=== PATIENT | female | born 1985 | race Caucasian/White ===

== ENCOUNTER 2020-01-28 00:57 | Emergency (ER) | payer BC ==
--- NOTE | 2020-01-28 01:04 | ED Physician Documentation ---
History of Present Illness - Stated complaint Stated Complaint: AB PX - History obtained from History obtained from: Patient - Additonal information Additional information: Patient is a 34-year-old female presents with a 1 to 2-day history of diffuse complaints such as suprapubic discomfort left lower quadrant left flank discomfort denies hematuria or any history of kidney stones denies fevers does report some mild pelvic discomfort without vaginal bleeding or discharge. She is a G6, P4 with 4 spontaneous vaginal deliveries. Denies fevers or vomiting. Review of Systems Constitutional: reports: Reviewed and negative Eyes: reports: Reviewed and negative Ears: reports: Reviewed and negative Nose: reports: Reviewed and negative Throat: reports: Reviewed and negative Cardiac: reports: Reviewed and negative Respiratory: reports: Reviewed and negative GI: reports: Abdominal Pain : reports: Dysuria Skin: reports: Reviewed and negative Musculoskeletal: reports: Reviewed and negative Neurologic: reports: Reviewed and negative Psychiatric: reports: Reviewed and negative Endocrine: reports: Reviewed and negative Immunocompromised: reports: Reviewed and negative PD PAST MEDICAL HISTORY - Present Medications Home Medications: Ambulatory Orders Medication Instructions Recorded Confirmed Cephalexin [Keflex] 500 mg PO QID 10 Days #40 capsule 01/28/20 - Allergies Allergies/Adverse Reactions: Allergies Allergy/AdvReac Type Severity Reaction Status Date / Time Iodinated Contrast Media Allergy Anaphylaxis Verified 01/28/20 01:08 acetaminophen [From Tylenol] AdvReac Unknown Verified 01/28/20 01:37 PD ED PE NORMAL - Vitals Vital signs reviewed: Yes - General General: Alert and oriented X 3, No acute distress - HEENT HEENT: PERRL - Neck Neck: Supple, no meningeal sign - Cardiac Cardiac: RRR, No murmur, Strong equal pulses - Respiratory Respiratory: No respiratory distress, Clear bilaterally - Abdomen Abdomen: Normal bowel sounds, Soft, Non tender, Non distended, No organomegaly - Back Back: Other (Positive for left-sided CVA tenderness) - Derm Derm: Warm and dry - Extremities Extremities: No deformity - Neuro Neuro: Alert and oriented X 3 - Psych Psych: Normal mood, Normal affect Results - Vitals Vitals: Vital Signs - 24 hr 01/28/20 01/28/20 01:05 02:17 Temperature 36.8 C Heart Rate 82 69 Respiratory 18 18 Rate Blood Pressure 129/82 H 115/69 O2 Saturation 100 98 Oxygen O2 Source Room air - Labs Labs: Laboratory Tests 01/28/20 01/28/20 01/28/20 01:06 01:25 01:25 WBC 7.1 RBC 4.07 L Hgb 12.6 Hct 37.6 MCV 92.4 MCH 31.0 MCHC 33.5 RDW 13.1 Plt Count 168 MPV 9.5 Neut # (Auto) 4.8 Lymph # (Auto) 1.5 [place] # (Auto) 0.6 Eos # (Auto) 0.1 Baso # (Auto) 0.0 Absolute Nucleated RBC 0.00 Nucleated RBC % 0.0 PT 12.8 H INR 1.1 APTT 31.8 Sodium Potassium Chloride Carbon Dioxide Anion Gap BUN Creatinine Estimated GFR (MDRD) Glucose Lactic Acid Calcium Total Bilirubin AST ALT Alkaline Phosphatase Total Creatine Kinase Total Protein Albumin Globulin Albumin/Globulin Ratio Lipase Urine Color YELLOW Urine Clarity SL. CLOUDY Urine pH 6.0 Ur Specific [place] 1.025 Urine Protein 100 H Urine Glucose (UA) NEGATIVE Urine Ketones NEGATIVE Urine Occult Blood LARGE H Urine Nitrite POSITIVE H Urine Bilirubin NEGATIVE Urine Urobilinogen 0.2 (NORMAL) Ur Leukocyte Esterase SMALL H Urine RBC 6-10 H Urine WBC >25 H Ur Squamous Epith Cells NONE SEEN Urine Bacteria Moderate H Ur Microscopic Review INDICATED Urine Culture Comments INDICATED Urine HCG, Qual NEGATIVE 01/28/20 01/28/20 01:25 01:25 WBC RBC Hgb Hct MCV MCH MCHC RDW Plt Count MPV Neut # (Auto) Lymph # (Auto) [place] # (Auto) Eos # (Auto) Baso # (Auto) Absolute Nucleated RBC Nucleated RBC % PT INR APTT Sodium 138 Potassium 3.7 Chloride 101 Carbon Dioxide 24 Anion Gap 13.0 BUN 10 Creatinine 0.7 Estimated GFR (MDRD) 96 Glucose 111 H Lactic Acid 1.0 Calcium 9.0 Total Bilirubin 0.6 AST 15 ALT 13 Alkaline Phosphatase 43 Total Creatine Kinase 80 Total Protein 7.3 Albumin 4.5 Globulin 2.8 Albumin/Globulin Ratio 1.6 Lipase 30 Urine Color Urine Clarity Urine pH Ur Specific [place] Urine Protein Urine Glucose (UA) Urine Ketones Urine Occult Blood Urine Nitrite Urine Bilirubin Urine Urobilinogen Ur Leukocyte Esterase Urine RBC Urine WBC Ur Squamous Epith Cells Urine Bacteria Ur Microscopic Review Urine Culture Comments Urine HCG, Qual PD MEDICAL DECISION MAKING - ED course Complexity details: reviewed results, re-evaluated patient, considered differential (Pyelonephritis, nephrolithiasis, cystitis, ruptured ovarian cyst), d/w patient Departure - Departure Disposition: 01 Home, Self Care Clinical Impression: Pyelonephritis Condition: Stable Instructions: Pyelonephritis Dc Follow-Up: your, doctor [Other] - 01/28/20 Prescriptions: Cephalexin [Keflex] 500 mg PO QID 10 Days #40 capsule Comments: Take antibiotics as directed. Please follow-up with your primary care provider this week for recheck. Discharge Date/Time: 01/28/20 02:37
[2020-01-28 01:16] LABS: BILIRUBIN,URINE NEGATIVE (NEGATIVE); GLUCOSE, URINE (UA) NEGATIVE (NEGATIVE); KETONES,URINE (UA) NEGATIVE (NEGATIVE); LEUKOCYTE ESTERASE, URINE SMALL (NEGATIVE); NITRITE,URINE POSITIVE (NEGATIVE); OCCULT BLOOD,URINE LARGE (NEGATIVE); PROTEIN,URINE 100 mg/dL (NEGATIVE); UROBILINOGEN,URINE 0.2 (NORMAL) E.U./dL (NORMAL)
[2020-01-28] MEDS ORDERED: SODIUM CHLORIDE 0.9% 1,000 ML IV STA (01:16)
[2020-01-28] MEDS ORDERED: ONDANSETRON 4 MG/2 ML VIAL IVP STA (01:16)
[2020-01-28] MEDS ORDERED: MORPHINE 2 MG/ML CARPUJECT IVP STA (01:16)
[2020-01-28 01:17] LABS: CLARITY,URINE SL. CLOUDY (CLEAR); HCG UR QUAL NEGATIVE
[2020-01-28 01:21] LABS: BACTERIA,URINE Moderate /HPF (None Seen); SQUAMOUS EPITHELIAL CELL,UR NONE SEEN (<= Few)
[2020-01-28] MEDS ORDERED: cefTRIAXone 1 GM in SODIUM CHLORIDE 0.9% MINIBAG 100 ML IV STA (01:27)
[2020-01-28 01:38] LABS: BASOPHILS % (AUTO) 0.4 %; EOSINOPHILS # (AUTO) 0.1 10^3/uL (0.0-0.7); HGB - HEMOGLOBIN 12.6 g/dL (12.0-16.0); LYMPHOCYTES # (AUTO) 1.5 10^3/uL (1.5-3.5); LYMPHOCYTES % (AUTO) 21.8 %; MEAN CORPUSCULAR HGB CONC 33.5 g/dL (32.0-36.0); MEAN CORPUSCULAR VOLUME 92.4 fL (81.0-99.0); MEAN PLATELET VOLUME 9.5 fL (7.9-10.8); MONOCYTES # (AUTO) 0.6 10^3/uL (0.0-1.0); MONOCYTES % (AUTO) 8.9 %; NEUTROPHILS # (AUTO) 4.8 10^3/uL (1.5-6.6); NEUTROPHILS % (AUTO) 67.5 %; PLT - PLATELET COUNT 168 10^3/uL (130-450); RED BLOOD COUNT 4.07 10^6/uL (4.20-5.40); RED CELL DISTRIBUTION WIDTH 13.1 % (12.0-15.0); WHITE BLOOD COUNT 7.1 x10^3/uL (4.8-10.8)
[2020-01-28 01:42] LABS: INR 1.1 (0.8-1.2); PT - PROTHROMBIN TIME 12.8 secs (9.9-12.6)
[2020-01-28] MEDS ORDERED: cefTRIAXone 1 GM VIAL ONE (01:42)
[2020-01-28 01:49] LABS: PARTIAL THROMBOPLASTIN TIME 31.8 secs (24.9-33.3)
[2020-01-28 01:51] LABS: BILIRUBIN,TOTAL 0.6 mg/dL (0.2-1.0); CREATININE 0.7 mg/dL (0.4-1.0)
[2020-01-28 01:52] LABS: ALBUMIN 4.5 g/dL (3.2-5.5); ALBUMIN/GLOBULIN RATIO 1.6 (1.0-2.2); TOTAL PROTEIN 7.3 g/dL (6.7-8.2)
[2020-01-28 02:18] VITALS: BP 115/69
--- NOTE | 2020-01-28 08:25 | CT Report ---
PROCEDURE: Abdomen/Pelvis WO INDICATIONS: left flank pain, left lower quadrant pain TECHNIQUE: Noncontrast 5 mm thick sections acquired from the diaphragms to the symphysis. 5 mm coronal and sagi ttal reformats were then performed. For radiation dose reduction, the following was used: automated exposure control, adjustment of mA and/or kV according to patient size. COMPARISON: None. FINDINGS: Image quality: Excellent. ABDOMEN: Lung bases: There is bibasilar dependent atelectasis and trace left greater than right bilateral pleu ral effusion. Heart size is normal. Solid organs: Liver and spleen are normal in size. Tiny hypodense areas are seen scattered in the l iver parenchyma and measures up to 5 mm in size and are too small to characterize. Gallbladder is wit hin normal limits Pancreas is normal in contours. No adrenal nodules. Kidneys are normal in size, without nephrolithiasis. Nonspecific mild prominence of bilateral renal collecting system and bilater al ureters are seen. No ureteral stone is identified. Peritoneum and bowel: Unenhanced bowel loops demonstrate normal wall thickness and caliber. No free fluid or air. No evidence of acute appendicitis is seen in right lower quadrant abdomen. Nodes and vessels: No retroperitoneal or mesenteric adenopathy by size criteria. Aorta and inferior vena cava are normal in caliber. Miscellaneous: No ventral hernias. PELVIS: Genitourinary: Bladder wall thickness is normal. Miscellaneous: No inguinal hernias or adenopathy. Uterus and bilateral adnexa show no gross abnorma lity. Bones: No suspicious bony lesions. No vertebral body compression fractures. IMPRESSION: 1. Trace bilateral pleural effusion and bibasilar dependent atelectasis. 2. Mildly prominent bilateral renal collecting systems and ureters without nephrolithiasis or uretera l calcifications. No calcified bladder stone. No perinephric fat stranding. This is a fairly nonspeci fic finding, which could represent passed stone versus reflux. 3. No bowel obstruction. Normal appendix. No free fluid or free air. No significant discrepancies from preliminary report. Reviewed by: Mick Chatman MD on 01/28/2020 8:24 AM PDT Approved by: Mick Chatman MD on 01/28/2020 8:24 AM PDT Station ID: [id number]
== END 2020-01-28 02:37 | disposition home or self-care (01) ==
LOC: ED 00:57
DX: N12 Tubulo-interstitial nephritis, not specified as acute or chronic (principal)
CPT/HCPCS: 36415; 74176; 80053; 81001; 81003; 81025; 82550; 83605; 83690; 85025; 85610; 85730; 87086; 87181; 96365; 96375; 99283

== ENCOUNTER 2020-07-30 09:03 | Outpatient (CLI) | payer BC ==
--- NOTE | 2020-07-30 10:00 | XRAY Report ---
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 COMPARISON: None. FINDINGS: Bones: No fractures or dislocations. There is a sclerotic region at the medial tibial plateau area w ithout evidence of articular disruption, measuring overall approximately 4.5 cm in craniocaudad dimen michelle and 3.9 cm transverse. Soft tissues: No suspicious soft tissue calcifications or masses. IMPRESSION: The clinical history indicates likelihood of prior plain film imaging of the lesion at the medial tib ial plateau marrow space. No comparison imaging is available for review, however. As noted the sclero tic bone lesion in the tibial plateau measures up to 4.5 x 3.9 cm. If possible please coordinate with the patient to obtain old comparison plain films or other advanced imaging through this area. Reviewed by: Lamberto Richard MD on 07/30/2020 9:58 AM PST Approved by: Lamberto Richard MD on 07/30/2020 9:58 AM PST Station ID: [id number]
--- NOTE | 2020-07-30 11:11 | XRAY Report ---
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 COMPARISON: None. FINDINGS: Surgical changes and devices: None. Lungs and pleura: No pleural effusions or pneumothorax. Lungs are clear. Mediastinum: Mediastinal contours are normal. Heart size is normal. Bones and chest wall: No suspicious bony abnormalities. Soft tissues appear unremarkable. IMPRESSION: Normal chest, no evidence of lesion involving the ribs or lung parenchyma. Reviewed by: Lamberto Richard MD on 07/30/2020 11:10 AM PST Approved by: Lamberto Richard MD on 07/30/2020 11:10 AM PST Station ID: [id number]
== END 2020-07-30 09:04 | disposition home or self-care (01) ==
LOC: DI 09:03
DX: D48.0 Neoplasm of uncertain behavior of bone and articular cartilage (principal)

== ENCOUNTER 2021-01-09 13:21 | Outpatient (CLI) | payer BC | END 2021-01-09 13:22 | disposition home or self-care (01) | LOC: LAB 13:21 | DX: Q79.62 Hypermobile Ehlers-Danlos syndrome (principal); G90.9 Disorder of the autonomic nervous system, unspecified; R53.82 Chronic fatigue, unspecified; G89.4 Chronic pain syndrome; Z82.69 Family history of other diseases of the musculoskeletal system and connective tissue; G62.89 Other specified polyneuropathies; M24.20 Disorder of ligament, unspecified site; G44.89 Other headache syndrome; M54.2 Cervicalgia; R00.2 Palpitations; M79.10 Myalgia, unspecified site; H52.209 Unspecified astigmatism, unspecified eye; K06.010 Localized gingival recession, unspecified; M26.609 Unspecified temporomandibular joint disorder, unspecified side; M79.81 Nontraumatic hematoma of soft tissue; F41.9 Anxiety disorder, unspecified; F32.89 Other specified depressive episodes; G47.00 Insomnia, unspecified; Z31.5 Encounter for procreative genetic counseling | CPT/HCPCS: 81599; 86664; 86665 ==

== ENCOUNTER 2021-03-06 06:47 | Outpatient (CLI) | payer BC ==
--- NOTE | 2021-03-06 10:34 | Ultrasound Report ---
PROCEDURE: Ext Limited Non Vascular INDICATIONS: SOFT TISSUE MASS TECHNIQUE: Real-time scanning was performed of the anterior lower extremity, with image documentatio n. COMPARISON: None. FINDINGS: Sonographic images at the area of palpable concern demonstrates no visualized area of mass lesion. No focal fluid collection or visualized area of architectural distortion is identified. IMPRESSION: Unremarkable exam. If concern persists, CT or MRI is recommended. Reviewed by: Twyla Damon MD on 03/06/2021 10:33 AM PDT Approved by: Twyla Damon MD on 03/06/2021 10:33 AM PDT Station ID: [id number]
== END 2021-03-06 06:48 | disposition home or self-care (01) ==
LOC: DI 06:47
PROVIDERS: ATTEND Nurse Practitioner
DX: M79.89 Other specified soft tissue disorders (principal)

== ENCOUNTER 2021-03-07 23:58 | Outpatient (CLI) | payer BC | END 2021-03-07 23:59 | disposition EMS.NT | LOC: EMS 23:58 | DX: M79.605 Pain in left leg (principal); M79.604 Pain in right leg ==

== ENCOUNTER 2021-04-27 15:33 | Emergency (ER) | payer BC ==
[2021-04-27 16:02] VITALS: BP 115/77
[2021-04-27 16:19] LABS: RAPID STREP SCREEN Negative (Negative)
[2021-04-27] MEDS ORDERED: LIDOCAINE VISCOUS 2% 15 ML UDC MM STA (17:06)
[2021-04-27] MEDS ORDERED: MAG HYDROX/AL HYDROX/SIMETH 30 ML UDC PO STA (17:06)
--- NOTE | 2021-04-27 17:09 | ED Physician Documentation ---
PD HPI HEENT - Stated complaint Stated Complaint: FACE PX - Chief complaint Chief Complaint: Heent - History obtained from History obtained from: Patient - Additional information Additional information: A few days worth of pain from a sore on the left side of the tongue. With radiation to the left side of the face. Severe at times. No fevers. Review of Systems Constitutional: reports: Reviewed and negative Eyes: reports: Reviewed and negative Ears: reports: Reviewed and negative PD PAST MEDICAL HISTORY - Past Medical History : Chronic bladder infection - Past Surgical History Past Surgical History: Yes Ortho: Other - Present Medications Home Medications: Ambulatory Orders Medication Instructions Recorded Confirmed cephALEXin [Keflex] 500 mg PO QID 10 Days #40 capsule 01/28/20 Magic Mouthwash 10 ml .ROUTE Q2H PRN #200 ml 04/27/21 - Allergies Allergies/Adverse Reactions: Allergies Allergy/AdvReac Type Severity Reaction Status Date / Time Iodinated Contrast Media Allergy Anaphylaxis Verified 04/27/21 16:02 acetaminophen [From Tylenol] AdvReac Unknown Verified 04/27/21 16:02 - Social History Does the pt smoke?: No Smoking Status: Never smoker Does the pt drink ETOH?: No Does the pt have substance abuse?: Yes - Immunizations Immunizations are current?: Yes - POLST Patient has POLST: No PD ED PE NORMAL - Vitals Vital signs reviewed: Yes - General General: Alert and oriented X 3, No acute distress - HEENT HEENT: PERRL, EOMI, Ears normal, Other (She has a tender aphthous ulcer on the left side of the tongue with tender adenopathy on the left side) - Neck Neck: Supple, no meningeal sign, No bony TTP - Neuro Neuro: Alert and oriented X 3, Normal speech Results - Vitals Vitals: Vital Signs - 24 hr 04/27/21 15:57 Temperature 36.2 C L Heart Rate 74 Respiratory 16 Rate Blood Pressure 115/77 O2 Saturation 100 Oxygen O2 Source Room air - Labs Labs: Laboratory Tests 04/27/21 16:04 Group A Strep Rapid Negative Departure - Departure Disposition: 01 Home, Self Care Clinical Impression: Aphthous ulcer Condition: Good Record reviewed to determine appropriate education?: Yes Instructions: ED Canker Sore Prescriptions: Magic Mouthwash 10 ml .ROUTE Q2H PRN #200 ml PRN Reason: Pain Comments: Talk with your doctor about further work-up. Return for new or worsening symptoms.
== END 2021-04-27 17:21 | disposition home or self-care (01) ==
LOC: ED 15:33
DX: K12.0 Recurrent oral aphthae (principal)
CPT/HCPCS: 87070; 87430; 99283; A9270

== ENCOUNTER 2023-06-09 22:34 | Outpatient (CLI) | payer OTHER | END 2023-06-09 22:35 | disposition critical access hospital (66) | LOC: EMS 22:34 | DX: R10.11 Right upper quadrant pain (principal); R10.12 Left upper quadrant pain; R07.89 Other chest pain | CPT/HCPCS: A0425; A0427 ==

== ENCOUNTER 2023-06-09 23:48 | Emergency (ER) | payer OTHER ==
[2023-06-10] MEDS ORDERED: DROPERIDOL 5 MG/2 ML VIAL IM STA (00:04)
--- NOTE | 2023-06-10 00:17 | ED Physician Documentation ---
History of Present Illness - Stated complaint Stated Complaint: RUQ PAIN - Chief complaint Chief Complaint: Abd Pain - History obtained from History obtained from: Patient, EMS - Additonal information Additional information: The patient comes to the emergency department via EMS for chief complaint of right upper quadrant pain, nausea, and vomiting. The patient states she has a longstanding history of abdominal issues, but that this right upper quadrant pain started about 6 weeks ago. She states that at that time, she was seen at [facility] and had ultrasound and CT scan done, both of which were unremarkable. She was told that the only thing that they had found on CT was possibly a ruptured ovarian cyst. Her ultrasound did not show any gallstones or evidence of a calculus cholecystitis. The patient was discharged with Reglan and has had several episodes of the pain since. She states that usually, she is able to get through it but that tonight, she could not take her Reglan because she was too nauseated to try to hold it down. The patient is not on any medication for pain currently. She states that in general, this episode is similar to prior ones, but that when she gets the pain and nausea, she also feels lightheaded. No shortness of breath, chest pain, or palpitations. The patient has a history of PTSD And RSD. She denies any abdominal surgical history. The patient does note that "she was told she had roundworms" and was put on a deworming medicine. It is not clear exactly who gave the patient this information. She is not really sure if it is related to this current episode or not. No fevers or chills. No dysuria. No other complaints at this time. Medics state they gave 3 mg of morphine IM and route and patient states this has helped her pain a little but she is still quite nauseated. PD PAST MEDICAL HISTORY - Past Medical History Cardiovascular: None Respiratory: None Neuro: None Endocrine/Autoimmune: None GI: None SECOND HELPER: None : Chronic bladder infection, Other HEENT: None Psych: Depression, Anxiety, ADD/ADHD, Post traumatic stress disorder Musculoskeletal: None Derm: None - Past Surgical History Past Surgical History: Yes Ortho: Other /SECOND HELPER: Dilation and currettage HEENT: Tonsil/Adenoidectomy - Present Medications Home Medications: Ambulatory Orders Medication Instructions Recorded Confirmed Dextroamphetamine/Amphetamine 10 mg PO DAILY 04/27/21 01/23/23 [Dextroamp-Amphetamine 5 mg Tab] Cefpodoxime Proxetil [Vantin] 200 mg PO Q12H #20 tablet 01/23/23 Lisdexamfetamine Dimesylate 40 mg PO DAILY 01/23/23 01/23/23 [Vyvanse] Pregabalin [Lyrica] 25 mg PO DAILY 01/23/23 01/23/23 Propranolol [Inderal] 10 mg PO DAILY 01/23/23 01/23/23 - Allergies Allergies/Adverse Reactions: Allergies Allergy/AdvReac Type Severity Reaction Status Date / Time Iodinated Contrast Media Allergy Anaphylaxis Verified 06/09/23 23:59 acetaminophen [From Tylenol] AdvReac Unknown Verified 06/09/23 23:59 - Social History Does the pt smoke?: No Smoking Status: Never smoker Does the pt drink ETOH?: No Does the pt have substance abuse?: Yes - Immunizations Immunizations are current?: Yes - POLST Patient has POLST: No PD ED PE NORMAL - Vitals Vital signs reviewed: Yes - General General: Well developed/nourished, Other (Alert and grossly oriented; the patient appears uncomfortable and occasionally retches, but is otherwise in no apparent distress.) - HEENT HEENT: Atraumatic, PERRL, EOMI, Moist mucous membranes - Neck Neck: Supple, no meningeal sign - Cardiac Cardiac: RRR, No murmur - Respiratory Respiratory: No respiratory distress, Clear bilaterally - Abdomen Abdomen: Soft, Non distended, Other (Mild diffuse tenderness, no tenderness over right upper quadrant, no rebound or guarding.) - Derm Derm: Normal color, Warm and dry, No rash - Extremities Extremities: No deformity, No edema - Neuro Neuro: Other (Alert, neurologic exam grossly intact.) - Psych Psych: Normal mood, Normal affect Results - Vitals Vitals: Vital Signs - 24 hr 06/09/23 06/10/23 23:55 01:59 Temperature 36.2 C L Heart Rate 48 L 60 Respiratory 18 18 Rate Blood Pressure 129/86 H 94/72 O2 Saturation 98 100 Oxygen O2 Source Room air - Labs Labs: Laboratory Tests 06/10/23 06/10/23 00:37 00:37 WBC 6.3 RBC 4.29 Hgb 13.1 Hct 41.0 MCV 95.6 MCH 30.5 MCHC 32.0 RDW 12.8 Plt Count 178 MPV 9.8 Neut # (Auto) 3.6 Lymph # (Auto) 1.9 [place] # (Auto) 0.5 Eos # (Auto) 0.1 Baso # (Auto) 0.0 Absolute Nucleated RBC 0.00 Nucleated RBC % 0.0 Sodium 140 Potassium 4.0 Chloride 105 Carbon Dioxide 25 Anion Gap 10.0 BUN 13 Creatinine 0.7 Estimated GFR (MDRD) 94 Glucose 89 Calcium 9.1 Total Bilirubin 0.5 AST 14 ALT 13 Alkaline Phosphatase 54 Total Protein 7.5 Albumin 4.8 Globulin 2.7 Albumin/Globulin Ratio 1.8 Lipase 32 PD Medical Decision Making - ED course Complexity details: reviewed old records, reviewed results, re-evaluated patient, considered differential, d/w patient ED course: The patient was worked up with laboratory studies in the emergency department and treated symptomatically with droperidol. On reevaluation, patient was feeling much better. She did complain of feeling a little anxious after receiving droperidol and I gave her Benadryl for this. The patient stated she felt well enough to go home and I felt she was stable for discharge. We have discussed home management and symptoms, as well as usual indications for return. Departure - Departure Disposition: 01 Home, Self Care Clinical Impression: Abdominal pain Qualifiers: Abdominal location: right upper quadrant Qualified Code(s): R10.11 - Right upper quadrant pain Vomiting Qualifiers: Vomiting type: bilious vomiting Nausea presence: with nausea Qualified Code(s): R11.14 - Bilious vomiting Condition: Stable Instructions: ED Abdominal Pain Female Non-Specific Abdominal Pain, ED Nausea Vomiting Comments: Your laboratory studies tonight look great. You have responded well to the medication we have given you in the emergency department. The nausea medication that you were given, droperidol, was very effective, but you did have a side effect that sometimes happens in this kind of medicine, where it causes feelings of jitteriness or anxiety. You may still get this medication in the future, but should let your doctor know if you have to come to the emergency department again, so they can give Benadryl along with the nausea medicine and avoid the side effect. You were given Benadryl tonight to help counteract the anxiety you are feeling. Please be sure you get plenty of water to drink to replace what you vomited. Please follow-up with your primary doctor to further address the bouts of right upper abdominal pain you have been having. Forms: PCP List Discharge Date/Time: 06/10/23 02:12
[2023-06-10 00:41] LABS: BASOPHILS % (AUTO) 0.5 %; EOSINOPHILS # (AUTO) 0.1 10^3/uL (0.0-0.7); EOSINOPHILS % (AUTO) 1.6 %; HGB - HEMOGLOBIN 13.1 g/dL (12.0-16.0); LYMPHOCYTES # (AUTO) 1.9 10^3/uL (1.5-3.5); MEAN CORPUSCULAR HEMOGLOBIN 30.5 pg (27.0-31.0); MEAN CORPUSCULAR VOLUME 95.6 fL (81.0-99.0); MEAN PLATELET VOLUME 9.8 fL (7.9-10.8); MONOCYTES # (AUTO) 0.5 10^3/uL (0.0-1.0); MONOCYTES % (AUTO) 8.6 %; NEUTROPHILS # (AUTO) 3.6 10^3/uL (1.5-6.6); PLT - PLATELET COUNT 178 10^3/uL (130-450); RED BLOOD COUNT 4.29 10^6/uL (4.20-5.40); RED CELL DISTRIBUTION WIDTH 12.8 % (12.0-15.0); WHITE BLOOD COUNT 6.3 x10^3/uL (4.8-10.8)
[2023-06-10 00:59] LABS: ALBUMIN 4.8 g/dL (3.2-5.5); ALBUMIN/GLOBULIN RATIO 1.8 (1.0-2.2); BILIRUBIN,TOTAL 0.5 mg/dL (0.2-1.0); CALCIUM 9.1 mg/dL (8.5-10.3); CREATININE 0.7 mg/dL (0.6-1.3); TOTAL PROTEIN 7.5 g/dL (6.4-8.9)
[2023-06-10] MEDS ORDERED: diphenhydrAMINE INJ 50 MG/ML VIAL IM STA (01:44)
[2023-06-10 02:12] VITALS: BP 94/72; O2SAT 100
== END 2023-06-10 02:12 | disposition home or self-care (01) ==
LOC: EDUNIT# → ED 23:48
DX: R10.11 Right upper quadrant pain (principal); R11.14 Bilious vomiting
CPT/HCPCS: 36415; 80053; 83690; 85025; 96374; 96375; 99283; J1200

== ENCOUNTER 2023-12-30 18:42 | Outpatient (CLI) | payer BC | END 2023-12-30 23:59 | disposition critical access hospital (66) | LOC: EMS 18:42 | DX: R46.4 Slowness and poor responsiveness (principal); R53.83 Other fatigue; R51.9 Headache, unspecified; R11.0 Nausea; M54.2 Cervicalgia; S40.019A Contusion of unspecified shoulder, initial encounter; X58.XXXA Exposure to other specified factors, initial encounter | CPT/HCPCS: A0425; A0429 ==

== ENCOUNTER 2023-12-30 18:54 | Emergency (ER) | payer BC, OTHER ==
--- NOTE | 2023-12-30 19:14 | ED Physician Documentation ---
History of Present Illness - Stated complaint Stated Complaint: AMS - History obtained from History obtained from: Patient - Additonal information Additional information: 38-year-old woman with history of Sara-Danlos, dysautonomia and migraines. She does have a history of frequent syncope but this morning at 3 AM she got out of bed with severe leg cramps. She went to the kitchen to drink some pickle juice and passed out. She is not sure if she hit her head but she woke after some time. Usually when she passes out she gets a warning but none this time. Then developed gradual onset headache this afternoon and is described by family as being confused. Headache is severe and different than prior migraines. PD PAST MEDICAL HISTORY - Past Medical History Cardiovascular: None Respiratory: None Neuro: None Endocrine/Autoimmune: None GI: None REED PRESS FEEDER: None : Chronic bladder infection, Other HEENT: None Psych: Depression, Anxiety, ADD/ADHD, Post traumatic stress disorder Musculoskeletal: None Derm: None - Past Surgical History Past Surgical History: Yes Ortho: Other /REED PRESS FEEDER: Dilation and currettage HEENT: Tonsil/Adenoidectomy - Present Medications Home Medications: Ambulatory Orders Medication Instructions Recorded Confirmed Dextroamphetamine/Amphetamine 10 mg PO DAILY 04/27/21 01/23/23 [Dextroamp-Amphetamine 5 mg Tab] Cefpodoxime Proxetil [Vantin] 200 mg PO Q12H #20 tablet 01/23/23 Lisdexamfetamine Dimesylate 40 mg PO DAILY 01/23/23 01/23/23 [Vyvanse] Pregabalin [Lyrica] 25 mg PO DAILY 01/23/23 01/23/23 Propranolol [Inderal] 10 mg PO DAILY 01/23/23 01/23/23 - Allergies Allergies/Adverse Reactions: Allergies Allergy/AdvReac Type Severity Reaction Status Date / Time Iodinated Contrast Media Allergy Anaphylaxis Verified 06/09/23 23:59 acetaminophen [From Tylenol] AdvReac Unknown Verified 06/09/23 23:59 - Social History Does the pt smoke?: No Smoking Status: Never smoker Does the pt drink ETOH?: No Does the pt have substance abuse?: Yes - Immunizations Immunizations are current?: Yes - POLST Patient has POLST: No PD ED PE NORMAL - Vitals Vital signs reviewed: Yes - General General: Alert and oriented X 3, No acute distress - HEENT HEENT: PERRL, EOMI - Neck Neck: Other (She is wearing a soft neck collar which she does with some frequency chronically. 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 Relevant findings are: Rate: Rate (enter#) (69) Rhythm: NSR [place]: Normal Intervals: Normal [place] QRS: Normal Ischemia: Normal ST segments - Labs Labs: Laboratory Tests 12/30/23 12/30/23 19:20 19:20 WBC 5.4 RBC 3.96 L Hgb 11.9 L Hct 36.2 L MCV 91.4 MCH 30.1 MCHC 32.9 RDW 12.9 Plt Count 177 MPV 9.2 Neut # (Auto) 3.4 Lymph # (Auto) 1.5 [place] # (Auto) 0.4 Eos # (Auto) 0.0 Baso # (Auto) 0.0 Absolute Nucleated RBC 0.00 Nucleated RBC % 0.0 Sodium 138 Potassium 3.6 Chloride 106 Carbon Dioxide 26 Anion Gap 6.0 BUN 8 Creatinine 0.7 Estimated GFR (MDRD) 94 Glucose 106 H Calcium 9.3 Magnesium 1.9 Total Bilirubin 0.6 AST 15 ALT 12 Alkaline Phosphatase 39 L Total Protein 6.6 Albumin 4.2 Globulin 2.4 Albumin/Globulin Ratio 1.8 - Rads (name of study) CT of the head and cervical spine were negative. Relevant Findings:: Final report received, EMP independent interpretation of test PD Medical Decision Making - ED course ED course: She had a severe headache after syncopal episode. It is not like her usual migraine, so a head injury was entertained but relevant CT of the head and neck were negative. Initially treated with Dilaudid and Toradol which actually helped her headache significantly but she still had some are type symptoms and felt "weird." And received a dose of IV droperidol with resolution. CBC, CMP were unremarkable. Save mild anemia. Urine was not produced during her stay. Departure - Departure Disposition: 01 Home, Self Care Clinical Impression: Syncope Qualifiers: Syncope type: unspecified Qualified Code(s): R55 - Syncope and collapse Headache Qualifiers: Headache type: unspecified Headache chronicity pattern: acute headache Intractability: not intractable Qualified Code(s): R51.9 - Headache, unspecified Condition: Good Record reviewed to determine appropriate education?: Yes Instructions: ED Fainting Unkn Cause Comments: Is not clear why you passed out tonight. You had a normal EKG. You are mildly anemic on your labs. We are also worried about your head but CAT scans of the head and neck were negative. Call your doctor to arrange a follow-up appointment, make the next available appointment. In the interim, return anytime if worse or if new symptoms develop.
[2023-12-30 19:29] LABS: BASOPHILS % (AUTO) 0.6 %; EOSINOPHILS % (AUTO) 0.7 %; HCT - HEMATOCRIT 36.2 % (37.0-47.0); HGB - HEMOGLOBIN 11.9 g/dL (12.0-16.0); LYMPHOCYTES # (AUTO) 1.5 10^3/uL (1.5-3.5); LYMPHOCYTES % (AUTO) 27.9 %; MEAN CORPUSCULAR HEMOGLOBIN 30.1 pg (27.0-31.0); MEAN CORPUSCULAR HGB CONC 32.9 g/dL (32.0-36.0); MEAN CORPUSCULAR VOLUME 91.4 fL (81.0-99.0); MEAN PLATELET VOLUME 9.2 fL (7.9-10.8); MONOCYTES # (AUTO) 0.4 10^3/uL (0.0-1.0); MONOCYTES % (AUTO) 7.6 %; NEUTROPHILS # (AUTO) 3.4 10^3/uL (1.5-6.6); NEUTROPHILS % (AUTO) 62.8 %; PLT - PLATELET COUNT 177 10^3/uL (130-450); RED BLOOD COUNT 3.96 10^6/uL (4.20-5.40); RED CELL DISTRIBUTION WIDTH 12.9 % (12.0-15.0); WHITE BLOOD COUNT 5.4 x10^3/uL (4.8-10.8)
[2023-12-30 19:44] LABS: MAGNESIUM 1.9 mg/dL (1.7-2.3)
[2023-12-30 19:50] LABS: ALBUMIN 4.2 g/dL (3.2-5.5); ALBUMIN/GLOBULIN RATIO 1.8 (1.0-2.2); BILIRUBIN,TOTAL 0.6 mg/dL (0.2-1.0); CALCIUM 9.3 mg/dL (8.5-10.3); CREATININE 0.7 mg/dL (0.6-1.3); POTASSIUM 3.6 mmol/L (3.5-4.5); TOTAL PROTEIN 6.6 g/dL (6.4-8.9)
--- NOTE | 2023-12-30 19:55 | CT Report ---
PROCEDURE: Cervical Spine WO INDICATIONS: head inj TECHNIQUE: Noncontrast 3 mm thick sections acquired from the skull base to the T4 level. Sagittal and coronal r eformats were then constructed. For radiation dose reduction, the following was used: automated exp osure control, adjustment of mA and/or kV according to patient size. COMPARISON: None. FINDINGS: Image quality: Diagnostic. Bones: No fractures or dislocations. Visualized superior ribs are intact. Soft tissues: Prevertebral soft tissues are normal in thickness. No paravertebral hematomas. No ap ical pneumothoraces. IMPRESSION: No acute, displaced fracture or traumatic subluxation. Reviewed by: Archana Lu MD, PhD on 12/30/2023 7:53 PM PDT Approved by: Archana Lu MD, PhD on 12/30/2023 7:53 PM PDT Station ID: [id number]
--- NOTE | 2023-12-30 19:55 | CT Report ---
PROCEDURE: Head WO INDICATIONS: head inj TECHNIQUE: Noncontrast 4.5 mm thick angled axial sections acquired from the foramen magnum to the vertex. For r adiation dose reduction, the following was used: automated exposure control, adjustment of mA and/or kV according to patient size. COMPARISON: None. FINDINGS: Image quality: Diagnostic. CSF spaces: Basal cisterns are patent. No extra-axial fluid collections. Ventricles are normal in size and shape. Brain: No midline shift. No intracranial masses or hemorrhage. Lux-white matter interface is norm al. Skull and face: Calvarium and visualized facial bones are intact, without suspicious lesions. Sinuses: Visualized sinuses and mastoids are clear. IMPRESSION: No acute intracranial pathology. Reviewed by: Archana Lu MD, PhD on 12/30/2023 7:54 PM PDT Approved by: Archana Lu MD, PhD on 12/30/2023 7:54 PM PDT Station ID: [id number]
[2023-12-30] MEDS: HYDROmorphone 1 MG/ML CARPUJECT IVP STA (20:34)
[2023-12-30] MEDS: KETOROLAC 15 MG/ML VIAL IVP STA (20:35)
[2023-12-30] MEDS: DROPERIDOL 5 MG/2 ML VIAL IVP STA (21:19)
[2023-12-30 21:57] VITALS: BP 117/86; O2SAT 100
== END 2023-12-30 21:56 | disposition home or self-care (01) ==
LOC: EDUNIT# → ED 18:54
DX: R55 Syncope and collapse (principal); R51.9 Headache, unspecified; Q79.60 Ehlers-Danlos syndrome, unspecified; G90.1 Familial dysautonomia [Riley-Day]; F32.A Depression, unspecified; F41.9 Anxiety disorder, unspecified; F43.10 Post-traumatic stress disorder, unspecified
CPT/HCPCS: 36415; 70450; 72125; 80053; 83735; 85025; 93005; 96374; 96375; 99284; J1170